=== PATIENT | female | born 1965 | race Caucasian/White ===

== ENCOUNTER 2016-11-25 13:40 | Day surgery (SDC) | payer OTHER ==
[~2016-11-25] VITALS: Ht 165.1 cm; Wt 65.8 kg
[~2016-11-25 13:40] MED LIST: 0.9% Sodium Chloride 1,000 ML IV PRN; ALEN70TA2 PO; ANAS1TAB7 PO; CHOL10008 PO; ESTR10TA VG; EXEM25TA5 PO; FLORADIX PO; HYDR28.311 RC; KTC2C15 TP; LACT1CAP65 PO; LEUP3.75 IM; Multivitamin PO; OMEG10005 PO; SALI45SP MM; Sodium Chloride LOK Flush 10 mL Syringe IV PRN; UBID1CAP3 PO; VIT1TABL83 PO; [UNRECOGNIZED DRUG - OTHER] PO; ashwagandha PO; fentaNYL-PF 50 mCg/mL 2 mL Inj IVPUSH PRN; lupron SQ
[2016-11-25 13:46] VITALS: BP 115/77; PULSE 72; RESP 14; O2SAT 100
[2016-11-25 14:57] VITALS: BP 106/55; PULSE 87; RESP 14; O2SAT 97
[2016-11-25 15:07] VITALS: BP 102/59; PULSE 73; O2SAT 99
[2016-11-25 15:18] VITALS: BP 106/62; PULSE 86; O2SAT 100
--- NOTE | 2016-11-26 01:06 | ENDO ---
[address] [address] ENDOSCOPY PROCEDURE PATIENT: CECIL FINE : 1965 MR#: [id number] ADMIT: 11/25/2016 JOB ID: [id number] CORRECTED REPORT: DATE: 11/25/2016 PRIMARY PROVIDER: Stanley Gibbs MD PROCEDURE: Colonoscopy. INDICATIONS: A 51-year-old female with a family history of colon cancer. She transiently had some challenges with perianal itching which have all resolved at the present time. EQUIPMENT: [id number]. SEDATION: 5 mg Versed and 100 mcg fentanyl. COMPLICATIONS: None identified. BOWEL PREPARATION: Fair, adequate exam. PROCEDURE INFORMATION: After the risks and benefits were explained, written and verbal informed consent was obtained. The patient was brought into the endoscopy suite and placed into the left lateral decubitus position. Sedation was achieved using the above-stated medications with the addition of oxygen via nasal cannula. A digital rectal examination was accomplished and no significant anorectal pathology appreciated. The scope was introduced into the rectum and advanced under direct visualization to the cecum as identified by the appendiceal orifice and ileocecal valve. The scope was slowly withdrawn to carefully examine the mucosa for any defects or lesions. Multiple direct views were made through the dentate line for exclusion of pathology. The colon was decompressed, the scope removed from the patient who tolerated the procedure well. FINDINGS: No significant polyps, mass lesions, or inflammatory features identified throughout. ENDOSCOPIC DIAGNOSIS: Visually normal colonoscopy to cecum. RECOMMENDATIONS: Repeat colonoscopy in five years considering family history. Corrected by MARANDA 12/03/16 at 2:23pm DOS
== END 2016-11-25 23:59 | disposition home or self-care (01) ==
LOC: END 13:40
PROVIDERS: ATTEND Internal Medicine Gastroenterology
DX: Z12.11 Encounter for screening for malignant neoplasm of colon (principal); Z80.0 Family history of malignant neoplasm of digestive organs
CPT/HCPCS: G0105; G0500; J2250; J3010; J7030